=== PATIENT | male | born 1965 | race Caucasian/White ===

== ENCOUNTER 2024-11-04 15:58 | Emergency (ER) | payer BC ==
[~2024-11-04] VITALS: Ht 188 cm; Wt 110.5 kg
[~2024-11-04 15:58] MED LIST: KEFLEX500 MG PO; L-LYSINE500 M1 PO
[2024-11-04 16:24] VITALS: BP 150/101
--- NOTE | 2024-11-04 21:29 | EKG ---
[facility] [address] [facility] [address] [place] [address] Signed Normal sinus rhythm Normal ECG No previous ECGs available Confirmed by Dalia Leyva MD () on 11/04/2024 9:29:33 PM Electronically Signed By: DALIA LEYVA MD 11/04/242128 PATIENT NAME: MINI PAINTER Electrocardiogram DATE OF : 67 PHYSICIAN: DALIA LEYVA MD REPORT #: [id number] REPORT IS CONFIDENTIAL AND NOT TO BE RELEASED WITHOUT AUTHORIZATION
== END 2024-11-04 16:26 | disposition left against medical advice (07) ==
LOC: ED 15:58
DX: R00.0 Tachycardia, unspecified (principal); Z53.21 Procedure and treatment not carried out due to patient leaving prior to being seen by health care provider
CPT/HCPCS: 93005; 93010